=== PATIENT | female | born 1995 | race Caucasian/White ===

== ENCOUNTER 2023-01-08 14:35 | Emergency (ER) | payer SELFPAY ==
[~2023-01-08 14:35] MED LIST: GASTROGRAFIN 30 ML BOT ONE; Iopamidol-370 76% 500 ML 1 ML ONE
[2023-01-08 15:42] LABS: #Lymphocytes 1.2 thou/uL (1.20-3.40); #Monocytes 0.8 thou/uL (0.11-0.59); #Neutrophils 5.2 thou/uL (1.40-6.50); %Basophils 0.6 % (0.0-1.0); %Eosinophils 0.3 % (0.0-10.0); %Lymphocytes 16.4 % (21.0-51.0); %Monocytes 11.2 % (0.0-10.0); %Neutrophils 71.5 % (42.0-75.0); Hemoglobin 15.3 g/dL (12.0-16.0); Mean Corpuscular HGB CONC 34.6 g/dL (32.0-36.0); Mean Corpuscular Hemoglobin 34.4 pg (27.0-31.0); Mean Corpuscular Volume 99.4 fl (78.0-98.0); Mean Platelet Volume 8.3 fL (7.4-10.4); Platelet Count 143 10x3/uL (130-400); RBC Distribution Width 11.1 % (11.5-14.5); Red Blood Cell (RBC) Count 4.44 mill/uL (4.20-5.40); White Blood Cell (WBC) Count 7.2 10x3/uL (4.8-10.8)
[2023-01-08] MEDS ORDERED: Morphine 4 MG/ML VIAL ONE (16:01)
[2023-01-08] MEDS ORDERED: Ondansetron PF 4 MG/2 ML Vial ONE (16:01)
[2023-01-08 16:08] LABS: ALT (SGPT) 12 U/L (8-55); AST (SGOT) 25 U/L (5-34); Albumin 4.4 g/dL (3.5-5.0); Alkaline Phosphatase 84 U/L (40-110); Anion Gap 12 mmol/L (10-20); BUN (Urea Nitrogen) 11 mg/dL (7.0-18.7); Bilirubin, Total 0.3 mg/dL (0.2-1.2); Calc. Creatinine Clearance 0 mL/min (70-130); Calcium 9.2 mg/dL (7.8-10.44); Carbon Dioxide 22 mmol/L (22-29); Chloride 105 mmol/L (98-107); Estimated GFR 111; Globulin 2.8 g/dL (2.4-3.5); Glucose 100 mg/dL (70-105); Potassium 3.2 mmol/L (3.5-5.1); Protein, Total 7.2 g/dL (6.0-8.3); Sodium 136 mmol/L (136-145)
[2023-01-08 16:47] LABS: Bacteria/HPF 2+ HPF (None Seen); Bilirubin Negative (Negative); Blood, Urine Negative (Negative); Clarity Clear (Clear); Glucose, Urine (Dipstick) Normal (Negative); Ketone, Urine Trace mg/dL (Negative); Leukocyte 25 Leu/uL (Negative); Nitrite Negative (Negative); Pregnancy Test - Urine (BHCG) Negative (Negative); Pregu Control Background? CLEAR/WHITE (CLR/WHITE); Pregu Control Bar Appear? YES (CONTROL BAR); Protein, Urine (Dipstick) Negative (Neg-Trace); RBC/HPF 0-3 HPF (0-3); Specific Gravity 1.004 (1.002-1.036); Specific Gravity, Urine 1.004 (1.002-1.036); Squamous Epithelial 0-3 HPF (0-3); Urobilinogen Normal mg/dL (Less than 2); WBC/HPF 0-3 HPF (0-3); pH, Urine 5.5 (5.0-9.0)
[2023-01-08] MEDS ORDERED: Potassium Chloride 20 MEQ TAB ONE (17:56)
[2023-01-08] MEDS ORDERED: Pot Chloride/Pot Bicarb/Cit Ac 25 mEq Effervescent Tablet ONE (17:58)
== END 2023-01-08 18:10 | disposition home or self-care (01) ==
LOC: ERS 14:35
DX: N39.0 Urinary tract infection, site not specified (principal)
CPT/HCPCS: 36415; 74177; 80053; 81003; 81015; 81025; 85025; 87086; 96374; 96375; J2270; J2405; Q9963; Q9967

== ENCOUNTER 2023-01-23 09:32 | Outpatient (CLI) | payer BC | END 2023-01-23 09:33 | disposition home or self-care (01) | LOC: BICMRI 09:32 | PROVIDERS: ATTEND Obstetrics & Gynecology | DX: R89.8 Other abnormal findings in specimens from other organs, systems and tissues (principal) | CPT/HCPCS: A9577; C8908 ==